=== PATIENT | male | born 1975 ===

== ENCOUNTER → 2020-06-16 13:29 | Outpatient (CLI) | payer OTHER, SELFPAY ==
--- NOTE | 2020-06-16 | DI.ECHO.S_ITS ---
[facility] +---------+ : : [address] : [place] : : : : [id number] : : : : Phone: [phone]---------+ Echocardiogram Report + + :Name: GOOD SHANE Study Date: 06/16/2020 Height: 69 in : :[facility] Weight: 160 lb : : Gender: Male BSA: 1.9 m2 : :: 1975 Age: 44 yrs BP: 134/84 mmHg: :Reason For Study: CHRONIC RESPRITORY CONDITION : :Ordering Physician: VERONICA, : :DEVYN Performed By: Paige Huddleston : :Referring: DEVYN MARTIN : + + Interpretation Summary Left ventricular systolic function is normal with an estimated ejection fraction of 55 to 60% without any focal wall motion abnormality. Left ventricular size and wall thickness are normal with probable normal diastolic function and filling pressures. The right ventricle appears normal in size and systolic function. Right ventricular systolic pressure cannot be estimated but CVP is likely around 3 mmHg. Both atria are normal in size. There is mild mitral regurgitation but no other significant valvular abnormality. Procedure: A two-dimensional transthoracic echocardiogram with color flow and Doppler was performed. The study quality was technically adequate. There is no prior echocardiogram noted for this patient. The patient was in sinus rhythm with heart rates between 58-67 bpm during the exam. Left Ventricle: The left ventricle appears normal in size, wall thickness, and systolic function without any focal wall motion abnormalities. The ejection fraction is estimated to be 55-60%. Diastolic parameters suggest probable normal left ventricular diastolic function and normal filling pressures. Right Ventricle: The right ventricle is normal in size and function. Atria: Both atria are normal in size. There is no Doppler evidence for an interatrial shunt. Mitral Valve: The mitral valve is normal in structure and function. There is mild mitral regurgitation. Aortic Valve: The aortic valve is trileaflet. The aortic valve is slightly calcified. The aortic valve opens well. There is no aortic valve stenosis. No aortic regurgitation is present. Tricuspid Valve: The tricuspid valve is normal in structure and function. There is trace tricuspid regurgitation. Pulmonary artery pressures cannot be estimated because of the lack of a measurable TR jet velocity but the IVC suggests a CVP of around 3 mmHg. Pulmonic Valve: The pulmonic valve leaflets are thin and pliable; valve motion is normal. There is trace pulmonic regurgitation. There is no other significant valvular heart disease. Great Vessels: The aortic root is normal size. The dimensions of the ascending aorta are normal. The IVC is of normal diameter and collapses greater than 50% with a sniff. This suggests a low right atrial pressure of 3 mm Hg. Pericardium/ Pleura There is no pericardial effusion. There is no pleural effusion. MMode/2D Measurements & Calculations LVIDd: 4.0 cm LVOT diam: 2.2 cm LVIDs: 2.7 cm Ao root diam: 2.7 cm FS: 32.4 % asc Aorta Diam: 2.9 cm EPSS: 0.48 cm Ao Arch Diam (Prox Trans): 2.6 cm IVSd: 0.83 cm LVPWd: 1.1 cm LV haji. diameter/BSA (cm/m^2): 2.1 LV sys. diameter/BSA (cm/m^2): 1.4 LA A2 area: 17.9 cm2 RA long axis: 4.7 cm LA A4 area: 14.1 cm2 RA area: 16.0 cm2 LA length (vol): 4.6 cm RA vol: 46.4 ml LA vol: 46.8 ml RA : 24.7 ml/m2 LA vol index: 24.9 ml/m2 IVC diam: 1.8 cm RVD1 (basal): 4.1 cm TAPSE: 2.0 cm Doppler Measurements & Calculations Ao V2 max: 118.1 cm/sec LVOT Max Albert: 78.3 cm/sec Ao V2 mean: 77.5 cm/sec LV V1 max P.5 mmHg Ao max P.6 mmHg LV V1 VTI: 15.7 cm Ao mean P.8 mmHg BRANDIN(I,D): 2.7 cm2 Ao V2 VTI: 21.8 cm BRANDIN(V,D): 2.5 cm2 sev ratio: 0.72 BRANDIN indexed to BSA (cm^2/m^2): 1.4 MV E max albert: 62.0 cm/sec PA V2 max: 64.7 cm/sec MV A max albert: 59.3 cm/sec PA V2 mean: 49.3 cm/sec MV E/A: 1.0 PA mean P.1 mmHg Med Peak E' Albert: 7.7 cm/sec PA pr(Accel): 19.1 mmHg E/E' med: 8.0 Lat Peak E' Albert: 8.4 cm/sec E/E' lat: 7.4 E/e' average: 7.7 MV dec time: 0.22 sec SV(LVOT): 58.6 ml Reading Physician:03:42 PM
== END ==
PROVIDERS: Referring Provider Orthopaedic Surgery; Visit Provider Orthopaedic Surgery
DX: I34.0 Nonrheumatic mitral (valve) insufficiency (principal); J98.9 Respiratory disorder, unspecified
CPT/HCPCS: 93306